=== PATIENT | male | born 1990 | race Caucasian/White ===

== ENCOUNTER → 2025-07-13 | Outpatient (CLI) | payer SELFPAY ==
--- NOTE | 2025-07-13 15:20 | RAD_ITS ---
PROCEDURE: CHEST PA AND LATERAL 07/13/2025 REASON FOR EXAM: COUGH TECHNIQUE: CHEST PA AND LATERAL FINDINGS: The heart is normal in size. The lungs are clear. No acute osseous abnormalities. RAD/Chest PA and Lateral IMPRESSION: NO ACUTE FINDINGS. Reading Location: [id number]
== END | disposition home or self-care (01) ==
PROVIDERS: PCP Family Medicine; Referring Provider Family Medicine; Visit Provider Family Medicine
DX: R05.9 Cough, unspecified (principal)
CPT/HCPCS: 71046